=== PATIENT | male | born 1960 | race Caucasian/White ===

== ENCOUNTER 2020-04-17 15:29 | Emergency (ER) | payer OTHER, SELFPAY ==
[2020-04-17 15:40] VITALS: BP 135/96; PULSE 63; RESP 18; TEMP 36.6; O2SAT 97
--- NOTE | 2020-04-17 16:02 | PC.NURSE ---
Called poison control [phone] for recommendations on treatment to eye. Per Rufina CHAKRABORTY, continue flushing the eye, normal saline irrigation. If pt has blisters, ulcerated areas, or other concerns should contact ophthalmology for consult. She will send info and call back for check up at a later time.
--- NOTE | 2020-04-17 16:55 | ED.GENADULT ---
HPI - General Adult General Chief complaint: Eye Problems <Keanu Abarca PA-C - Last Filed: 04/17/20 17:04> Stated complaint: Acid in Right Eye <Keanu Abarca PA-C - Last Filed: 04/17/20 17:04> Time Seen by Provider: 04/17/20 15:38 <Keanu Abarca PA-C - Last Filed: 04/17/20 17:04> Source: patient and other <Keanu Abarca PA-C - Last Filed: 04/17/20 17:04> Mode of arrival: ambulatory <Keanu Abarca PA-C - Last Filed: 04/17/20 17:04> Limitations: no limitations <Keanu Abarca PA-C - Last Filed: 04/17/20 17:04> History of Present Illness HPI narrative: Patient is a 59-year-old male who presents with right eye irritation after getting a small amount of acid into the right eye while working on the swimming pool at the public [employer] patient notes burning with irritation with slight blurred vision irrigated his eye thoroughly after the event patient presents noting mild burning pain patient denies other injury trauma or complaints does not appear to be in any distress is unsure as his tetanus status <Keanu Abarca PA-C - Last Filed: 04/17/20 17:04> Related Data Allergies/adverse reactions: Allergies Allergy/AdvReac Type Severity Reaction Status Date / Time No Known Allergies Allergy Verified 04/17/20 15:44 <Keanu Abarca PA-C - Last Filed: 04/17/20 17:04> Review of Systems Review of Systems: All systems reviewed & are unremarkable except as noted in HPI and below <Keanu Abarca PA-C - Last Filed: 04/17/20 17:04> PMFSH Social History Social History: Social History Gender identity (if verbalized by the patient): Male Sexual Orientation (if Verbalized by the Patient): Straight or Heterosexual <Keanu Abarca PA-C - Last Filed: 04/17/20 17:04> Exam Narrative: Exam Narrative: GENERAL: Well-appearing, well-nourished, and in no acute distress. HEAD: Normocephalic, atraumatic. EYES: PERRLA and EOMI. conjunctival injection right eye no foreign bodies eyelids everted unremarkable negative fluorescein uptake eye was copiously irrigated by myself the public health technician as well ENT: Nares clear, no rhinorrhea or epistaxis. Mucous membranes moist. EXTREMITIES: Normal range of motion. No edema. SKIN: Warm, dry, no rash. NEURO: No focal deficits. Alert and oriented x3. PSYCH: Normal mood and affect. <CIERRA Rasheed Last Filed: 04/17/20 17:04> Course Course Emergency Course: Patient's eye was irrigated evaluated will be discharged out of the emergency department with ophthalmology follow-up given reasons to return had negative fluorescein staining tetanus was updated eye was irrigated <CIERRA Rasheed Last Filed: 04/17/20 17:04> Vital Signs Vital signs: Vital Signs Temperature 36.6 C 04/17/20 15:40 Pulse Rate 63 04/17/20 15:40 Respiratory Rate 18 04/17/20 15:40 Blood Pressure 135/96 H 04/17/20 15:40 Pulse Oximetry 97 04/17/20 15:40 Temperature 36.6 C 04/17/20 15:40 Pulse Rate 63 04/17/20 15:40 Respiratory Rate 18 04/17/20 15:40 Blood Pressure 135/96 H 04/17/20 15:40 Pulse Oximetry 97 04/17/20 15:40 <CIERRA Rasheed Last Filed: 04/17/20 17:04> Vital Signs Temperature 36.6 C 04/17/20 15:40 Pulse Rate 63 04/17/20 15:40 Respiratory Rate 18 04/17/20 15:40 Blood Pressure 135/96 H 04/17/20 15:40 Pulse Oximetry 97 04/17/20 15:40 Temperature 36.6 C 04/17/20 15:40 Pulse Rate 63 04/17/20 15:40 Respiratory Rate 18 04/17/20 15:40 Blood Pressure 135/96 H 04/17/20 15:40 Pulse Oximetry 97 04/17/20 15:40 <Maria G Escobar MD - Last Filed: 04/17/20 17:09> Medical Decision Making MDM Narrative Medical decision making narrative: Patient in the room in no distress aware of case findings treatment plan and diagnosis <CIERRA Rasheed Filed: 04/17/20 17:04> Vital
[2020-04-17] MEDS: TETANUS,DIPHTHERIA,AC PERTUSSIS ADULT (0.5 ML) BOOSTRIX IM (16:59)
[2020-04-17 17:19] VITALS: BP 133/87; PULSE 63; RESP 15; O2SAT 97
== END 2020-04-17 17:24 | disposition home or self-care (01) ==
PROVIDERS: Emergency Provider Emergency Medicine
DX: T54.2X1A Toxic effect of corrosive acids and acid-like substances, accidental (unintentional), initial encounter (principal); H10.211 Acute toxic conjunctivitis, right eye; Z23 Encounter for immunization
CPT/HCPCS: 90471; 90715; 99283; A9270